=== PATIENT | female | born 1980 | race Caucasian/White ===

== ENCOUNTER 2016-08-07 20:00 | Emergency (ER) | payer BC ==
[2016-08-07 21:59] VITALS: BP 110/69
--- NOTE | 2016-08-07 22:03 | UC ---
Bite Injury/Animal HPI - HPI Summary HPI Summary: Was bitten by a Rottweiler, neighbor's dog tonight approx 6:30pm, while walking her dog. Dog is quarantined for 10 days per pt who spoke with the hide puller. Dog is UTD on rabies shots. Pt's last tetanus is unrecalled. Pt was bitten on her left forearm and her left knee - History of Current Complaint Chief Complaint: UCBiteInjury Stated Complaint: DOG BITE LEFT FOREARM Time Seen by Provider: 08/07/16 22:02 Hx Obtained From: Patient Hx Last Menstrual Period: 2009 ?: No Severity Currently: Moderate Severity Initially: Moderate Pain Intensity: 3 Pain Scale Used: 0-10 Numeric Onset/Duration: Sudden Onset, Lasting Hours, Still Present Type of Bite: Animal - neighbor's pet Has Animal Been Immunized?: Yes Character: Puncture Aggravating Factor(s): Nothing Alleviating Factor(s): Nothing Associated Signs And Symptoms: Positive: Drainage, Swelling Hx of Bite: Provoked by: - breaking up a dog fight Animal Available for Observation: Yes Animal Control Notified: Yes - Allergies/Home Medications Allergies/Adverse Reactions: Allergies Allergy/AdvReac Type Severity Reaction Status Date / Time No Known Allergies Allergy Verified 08/07/16 21:53 Home Medications: Home Medications ALPRAZolam TAB* [Xanax TAB*] 0.25 mg PO Q8H PRN 08/07/16 [History Confirmed 08/19] Calcium Polycarbophil [Fiber Tabs] 1,875 mg PO DAILY 08/07/16 [History Confirmed 08/07/16] Cyanocobalamin TAB* [Vitamin B12 TAB*] 1,000 mcg PO DAILY 08/07/16 [History Confirmed 08/07/16] Norethindr/Eth Estradiol(Nf) [Lo Loestrin Fe (NF)] 1 tab PO DAILY 08/07/16 [ History Confirmed 08/07/16] traZODone TAB* [Desyrel TAB*] 50 mg PO BEDTIME 08/07/16 [History Confirmed 08/07] PMH/Surg Hx/FS Hx/Imm Hx GI/ History Of: Reports: Ulcer Psychological History Of: Reports: Anxiety - Surgical History Surgical History: Yes Surgery Procedure, Year, and Place: BUNIONECTOMY LEFT 2007. CESCTION 2002. RIGHT WRIST FX REPAIR 2003 - Family History Known Family History: Positive: Cardiac Disease - father with this, Hypertension - mother, still alive - Social History Occupation: Employed Full-time Lives: With Family Alcohol Use: Weekly Substance Use Type: None Smoking Status (MU): Former Smoker Amount Used/How Often: 2-3 CIGS/DAY When Did the Patient Quit Smoking/Using Tobacco: 08/2013 - Immunization History Most Recent Tetanus Shot: "I honestly don't know." Review of Systems Constitutional: Negative Skin: Bruising - left forearm, left knee, Other - puncture wound left knee, Eyes: Negative ENT: Negative Respiratory: Negative Cardiovascular: Negative Gastrointestinal: Negative Genitourinary: Negative Motor: Negative Neurovascular: Negative Musculoskeletal: Negative Neurological: Negative Psychological: Negative All Other Systems Reviewed And Are Negative: Yes Physical Exam Triage Information Reviewed: Yes Appearance: Well-Appearing, Pain Distress, Thin Vital Signs: Initial Vital Signs Temp 98.6 F 08/07/16 21:51 Pulse 66 08/07/16 21:51 Resp 16 08/07/16 21:51 BP 110/69 08/07/16 21:51 Pulse Ox 98 08/07/16 21:51 Vital Signs Reviewed: Yes Eyes: Positive: Conjunctiva Clear ENT: Positive: Normal ENT inspection Neck: Positive: Supple Respiratory: Positive: No respiratory distress Cardiovascular: Positive: RRR, Pulses Normal, Brisk Capillary Refill Musculoskeletal: Positive: Strength Intact, ROM Intact Neurological: Positive: Alert, Muscle Tone Normal Psychological Exam: Normal Skin: Positive: Other - left forearm brusiing and abrasion, not draining, 4cm; left post knee with bruising and abrasion, not draining 6cm; puncture wound left lat knee Bite Injury Course/Dx - Course Course Of Treatment: discussed xray and decided superficial, little risk of FB or fracture. wound irrigation and cleanse and oral antibiotics - Differential Dx/Diagnosis Differential Diagnosis/HQI/PQRI: Joint Space Infection, Laceration, Puncture, Superficial Infection, Deep Space Infection Provider Diagnoses: dog bite puncture wounds and contusions to left forearm and left knee Discharge - Discharge Plan Condition: Stable Disposition: HOME Prescriptions: Amoxicillin/Clavulanate TAB* [Augmentin TAB 875*] 875 mg PO BID #20 tab Fluconazole [Diflucan 150 MG (NF)] 150 mg PO ONCE #2 tab HYDROcodone/ACETAMIN 5-325 MG* [Forks 5-325 TAB*] 1 tab PO Q4H PRN #18 tab MDD 6 PRN Reason: Pain Patient Education Materials: Animal Bite (ED) Referrals: Yvonne Evans NP [Primary Care Provider] - Jaguar Blackwood MD [Medical Doctor] - 3 Days (definite for dog bite follow up )
[2016-08-07] MEDS ORDERED: Amoxicillin/Clavulanate TAB* 875 MG PO ONE (22:38)
[2016-08-07] MEDS ORDERED: Tetan/Diph/Pertus SYR(Tdap)* 0.5 ML SYR(BOOSTRIX) use SYR IM ONE (22:46)
== END 2016-08-07 23:22 | disposition home or self-care (01) ==
LOC: UCCORT 20:00
DX: S51.832A Puncture wound without foreign body of left forearm, initial encounter (principal); S81.032A Puncture wound without foreign body, left knee, initial encounter; S50.12XA Contusion of left forearm, initial encounter; S80.02XA Contusion of left knee, initial encounter; W54.0XXA Bitten by dog, initial encounter; Y93.K1 Activity, walking an animal; Y92.9 Unspecified place or not applicable; Z23 Encounter for immunization; F41.9 Anxiety disorder, unspecified; Z87.891 Personal history of nicotine dependence
CPT/HCPCS: 90471; 90715; 99213; A9270-GY; G0463

== ENCOUNTER 2019-02-27 10:19 | Day surgery (SDC) | payer BC ==
[~2019-02-27 10:19] MED LIST: Buffered Lidocaine 1% SYRIN* 1 ML/SYRINGE INTRADERM ONE; Lactated Ringers 1000 ML Bag* 1,000 ML IV SCH; Sodium Citrate/Citric Acid* 15 ML UDC PO ONE
[2019-02-27] MEDS ORDERED: ceFAZolin 2 GM in NS PREMIX(*) 2 GM/100 ML BAG IVPB ONE (11:47)
[2019-02-27] MEDS ORDERED: Sodium Citrate/Citric Acid* 15 ML UDC ONE (11:47)
[2019-02-27] MEDS ORDERED: Acetaminophen IV 1GM/100ML * 1,000 MG/100 ML VIAL IVPB ONE (13:02)
[2019-02-27] MEDS ORDERED: Naloxone* 0.4 MG/ML 1 ML VIAL IV PRN (13:02)
[2019-02-27] MEDS ORDERED: fentaNYL* 50 MCG/ML 2 ML VIAL (100 MCG VIAL) IV PRN (13:02)
[2019-02-27] MEDS ORDERED: DiMENhydriNATE IV* 50 MG/ML VIAL IV PUSH PRN (13:02)
[2019-02-27] MEDS ORDERED: ROPIVACAINE 5 MG/ML 30 ML BTL (0.5%) ONE (13:06)
[2019-02-27] MEDS ORDERED: Propofol* 10 MG/ML 20 ML BTL ONE (13:10)
[2019-02-27] MEDS ORDERED: fentaNYL* 50 MCG/ML 2 ML VIAL (100 MCG VIAL) ONE ×2 (13:10→15:55)
[2019-02-27] MEDS ORDERED: Lidocaine 2% PF * 5 ML VIAL ONE (13:10)
[2019-02-27] MEDS ORDERED: Ondansetron INJ* 2 MG/ML VIAL ONE (14:17)
[2019-02-27] MEDS ORDERED: Ketorolac INJ* 30 MG/ML 1 ML VIAL ONE (14:17)
[2019-02-27] MEDS ORDERED: Dexamethasone IV* 4 MG/ML 1 ML (4 MG) ONE (14:17)
[2019-02-27] MEDS ORDERED: oxyCODONE TAB* 5 MG TAB ONE (15:55)
[2019-02-27] MEDS ORDERED: Acetaminophen IV 1GM/100ML * 100 ML ONE (15:55)
[2019-02-27 17:02] VITALS: BP 108/67
--- NOTE | 2019-02-27 21:31 | OP ---
DATE OF OPERATION: 02/27/19 - [facility] DATE OF : 78 SURGEON: Maxx Arreaga MD. TREATMENT SPECIALIST: Echo Mcneal PA-C. PRE-OP DIAGNOSIS: Recurrent left hallux valgus, long painful left second metatarsal and plantar neuroma left third-fourth web space. POST-OP DIAGNOSIS: Recurrent left hallux valgus, long painful left second metatarsal and plantar neuroma left third-fourth web space. OPERATIVE PROCEDURES: Left Barouk osteotomy with modified Suarez, second shortening osteotomy metatarsal and excision of neuroma left third-fourth web space. DESCRIPTION OF PROCEDURE: The patient was taken to the operating room where we made a longitudinal incision in the dorsal web space #1 and 2. Through this level, we reflected the transverse ligament and the adductor tendon away from the lateral sesamoid. Medially, we extended the previous straight medial incision to the base of the first metatarsal. Capsule was exposed and protected. Transverse capsulotomy was made at the level of the medial eminence , which was reflected plantarward to allow visualization of the medial eminence which was flattened with a micro sagittal saw. Proximally, there was hardware in the metatarsal to deal with. We removed the cerclage wire and proximally there was a pin that coursed dorsal to plantar and it seemed to project on the plantar aspect at least a couple of centimeters. Using a Fox retractor, we were able to visualize the plantar aspect, which was transected then with a bur and that part of the pin removed so that it would not project deeply into the plantar soft tissues. Barouk osteotomy was made using the micro sagittal saw in the sagittal direction removing 3 or 4 mm wedge laterally. This was fixed with three cannulated 3.0 screws. The extra capsule was then removed at the medial eminence, which was repaired with 0 Vicryl sutures. X-ray intraoperatively showed satisfactory alignment of the hallux. We then through the same dorsal first-second web space incision exposed the dorsal aspect of the second metatarsal. Idalia osteotomy was then made from a distal dorsal to plantar proximal aspect through the metatarsal neck. A double cut was made so that about 2 mm of wafer was removed. We then slid the metatarsal head proximally pinning this with the dorsal to plantar 13 mm twist-off screw. The third-fourth web space was opened up dorsally and the transverse metatarsal ligament incised. A large plantar neuroma was visualized at least 3 or 4 mm in diameter. We transected the distal branches of the neuroma pulling it dorsally up into the wound. We were able to trace it proximally deep beneath the metatarsal and was then transected at that level. All three wounds were then irrigated thoroughly, closed with Monocryl subcu sutures and nylon for the skin and a compression dressing with plaster splint was applied. [id number]/[facility] #: [id number] KEIRA
== END 2019-02-27 17:03 | disposition home or self-care (01) ==
LOC: OR 10:19
PROVIDERS: ATTEND Orthopaedic Surgery
DX: M20.12 Hallux valgus (acquired), left foot (principal); M20.5X2 Other deformities of toe(s) (acquired), left foot; G57.62 Lesion of plantar nerve, left lower limb; Z87.891 Personal history of nicotine dependence; Z85.828 Personal history of other malignant neoplasm of skin
CPT/HCPCS: 76000; 81025; 88304; A9270-GY; C1713; J0690; J1100; J1885; J2405; J2704; J2795; J3010